=== PATIENT | female | born 1960 | race Caucasian/White ===

== ENCOUNTER 2019-03-17 11:16 | Emergency (ER) | payer SELFPAY ==
[~2019-03-17] VITALS: Ht 170.2 cm; Wt 54.4 kg
[2019-03-17 11:30] VITALS: BP 126/67
[2019-03-17] MEDS ORDERED: SULF1TAB24 PO (11:51)
--- NOTE | 2019-03-17 11:52 | PHYS DOC ---
Past Medical History Past Medical History: No Pertinent History (CHRISTIANO MACEDO APRN) Past Surgical History: Hysterectomy, Other Additional Past Surgical Histo: spleen repair (CHRISTIANO MACEDO APRN) Alcohol Use: Occasionally Drug Use: Marijuana (CHRISTIANO MACEDO APRN) Adult General Chief Complaint Chief Complaint: INSECT BITE HPI HPI Patient is a 58 year old female who presents with an insect bite to her right thigh area that she is unsure of what bit her. She states that she noticed it swelling approximately 2 days ago. She states that it is been itching with some pain associated with it as well. She denies fever, nausea or vomiting. (CHRISTIANO MACEDO APRN) Review of Systems Review of Systems Constitutional: Denies fever or chills [] Respiratory: Denies cough or shortness of breath [] Cardiovascular: No additional information not addressed in HPI [] GI: Denies abdominal pain, nausea, vomiting, bloody stools or diarrhea [] : Denies dysuria or hematuria [] Musculoskeletal: Denies back pain or joint pain [] Integument: See history of present illness Neurologic: Denies headache, focal weakness or sensory changes [] Endocrine: Denies polyuria or polydipsia [] All other systems were reviewed and found to be within normal limits, except as documented in this note. (CHRISTIANO MACEDO APRN) Allergies Allergies Allergies Coded Allergies Type Severity Reaction Last Updated Verified No Known Drug Allergies 03/17/19 No (NITIN GONZALES MD) Physical Exam Physical Exam Constitutional: Well developed, well nourished, no acute distress, non-toxic appearance. [] Cardiovascular:Heart rate regular rhythm, no murmur [] Lungs & Thorax: Bilateral breath sounds clear to auscultation [] Abdomen: Bowel sounds normal, soft, no tenderness, no masses, no pulsatile masses. [] Skin: There is a 3 cm indurated lesion to the right posterior thigh with erythema and slight scabbing to the center, no bull's-eye rash noted Neurologic: Alert and oriented X 3, normal motor function, normal sensory function, no focal deficits noted. [] Psychologic: Affect normal, judgement normal, mood normal. [] (CHRISTIANO MACEDO APRN) Current Patient Data Vital Signs Vital Signs Date Time Temp Pulse Resp B/P (MAP) Pulse Ox O2 Delivery O2 Flow Rate FiO2 03/17/19 11:30 97.8 68 18 126/67 (86) 99 Room Air 97.8 (NITIN GONZALES MD) EKG EKG [] (CHRISTIANO MACEDO APRN) Radiology/Procedures Radiology/Procedures [] (CHRISTIANO MACEDO APRN) Course & Med Decision Making Course & Med Decision Making Pertinent Labs and Imaging studies reviewed. (See chart for details) [] (CHRISTIANO MACEDO APRN) Course & Med Decision Making Staff Physician Addendum: I was working in the ER during the course of this patient's visit. I was available for consultation as needed, but I was not directly involved in the care of this patient. (NITIN GONZALES MD) Dragon Disclaimer Dragon Disclaimer This electronic medical record was generated, in whole or in part, using a voice recognition dictation system. (CHRISTIANO MACEDO APRN) Departure Departure Impression: Primary Impression: Skin infection Disposition: 01 HOME, SELF-CARE Condition: STABLE Referrals: NO PCP (PCP) Patient Instructions: Skin Infections Additional Instructions: Take the antibiotic as directed. Use hot compresses to the area of infection. Follow-up with your primary care provider in 4 days if not improving or return to the emergency department if worsening. Scripts Sulfamethoxazole/Trimethoprim (BACTRIM DS TABLET) 1 Each Tablet 1 TAB PO BID for skin insect, #20 TAB Prov: CHRISTIANO MACEDO APRN 03/17/19 CHRISTIANO MACEDO APRN Mar 17, 2019 11:52 NITIN GONZALES MD March 19, 2019 00:05
== END 2019-03-17 11:56 | disposition home or self-care (01) ==
LOC: ER 11:16
DX: S70.361A Insect bite (nonvenomous), right thigh, initial encounter (principal); R23.4 Changes in skin texture; L08.89 Other specified local infections of the skin and subcutaneous tissue; Z90.710 Acquired absence of both cervix and uterus; W57.XXXA Bitten or stung by nonvenomous insect and other nonvenomous arthropods, initial encounter; Y93.89 Activity, other specified; Y92.89 Other specified places as the place of occurrence of the external cause; Y99.8 Other external cause status
CPT/HCPCS: 99283